=== PATIENT | female | born 1980 ===

== ENCOUNTER 2017-10-29 13:12 | Emergency (ER) | payer OTHER ==
--- NOTE | 2017-10-29 13:37 | C.PDOC ---
History Of Present Illness 37 year old female presents to the ED c/o 1 day history of itchy rash to the face upper arms and anterior chest. Patient state she has not been eating nothing new, not new detergents or lotions. Patient denies SOB, itchy throat, cough, facial swelling, recent travel. Chief Complaint (Nursing): Abnormal Skin Integrity History Per: Patient History/Exam Limitations: no limitations Onset/Duration Of Symptoms: Days (1) Current Symptoms Are (Timing): Still Present Location Of Injury: Right: Arm, Face, Left: Arm, Face, Anterior: Chest Quality Of Symptoms: Itching Recent travel outside of the [place]: No Additional History Per: Patient Past Medical History Reviewed: Historical Data, Nursing Documentation, Vital Signs Vital Signs: Last Vital Signs Temp 98.2 F 10/29/17 14:40 Pulse 75 10/29/17 14:40 Resp 18 10/29/17 14:40 BP 127/73 10/29/17 14:40 Pulse Ox 100 10/29/17 17:26 - Medical History PMH: No Chronic Diseases Surgical History: No Surg Hx Family History: States: Unknown Family Hx - Social History Hx Tobacco Use: No Hx Alcohol Use: No Hx Substance Use: No Review Of Systems Constitutional: Negative for: Fever, Chills Cardiovascular: Negative for: Chest Pain Respiratory: Negative for: Cough, Shortness of Breath Gastrointestinal: Negative for: Nausea, Vomiting Skin: Positive for: Rash Physical Exam - Physical Exam Appears: Non-toxic, No Acute Distress Skin: Warm, Dry, Rash (hives to face and anterior chest) Head: Atraumatic, Normacephalic Eye(s): bilateral: Normal Inspection Nose: No Discharge Oral Mucosa: Moist Tongue: No Swelling Lips: No Swelling Neck: Normal ROM, Supple Chest: Symmetrical Cardiovascular: Rhythm Regular, No Murmur Respiratory: Normal Breath Sounds, No Rales, No Rhonchi, No Wheezing, Other ( NARD) Extremity: Normal ROM, No Tenderness, No Swelling Neurological/Psych: Oriented x3, Normal Speech Gait: Steady ED Course And Treatment O2 Sat by Pulse Oximetry: 100 (ON RA) Pulse Ox Interpretation: Normal Progress Note: On re-evaluation patient feels better, stable to be d/c with PMD/ Clinic follow up. Medical Decision Making Medical Decision Making: Plan: * Benadryl 50 mg IM * Pepcid 40 mg PO * Prednisone 60 mg PO Disposition - Disposition Referrals: [facility] [Outside] Disposition: HOME/ ROUTINE Disposition Time: 14:36 Condition: IMPROVED Additional Instructions: Follow up in Clinic within 1-2 days. Return to ED if feel worse. 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 - Scribe Statement The provider has reviewed the documentation as recorded by the Scribe Yogesh Cosby All medical record entries made by the Scribe were at my direction and personally dictated by me. I have reviewed the chart and agree that the record accurately reflects my personal performance of the history, physical exam, medical decision making, and the department course for this patient. I have also personally directed, reviewed, and agree with the discharge instructions and disposition.
[2017-10-29] MEDS ORDERED: DiphenhydrAMINE 50 mg/ml Inj IM STA (13:42)
[2017-10-29 13:45] VITALS: O2SAT 100
[2017-10-29] MEDS ORDERED: DiphenhydrAMINE 50 mg/ml Inj ONE (13:58)
[2017-10-29 14:49] VITALS: BP 127/73; PULSE 75; RESP 18; TEMP 98.2
== END 2017-10-29 14:40 | disposition home or self-care (01) ==
LOC: C.ER 13:12
DX: L50.0 Allergic urticaria (principal)
CPT/HCPCS: 96372; 99284; J1200

== ENCOUNTER 2017-12-14 08:28 | Emergency (ER) | payer OTHER, SELFPAY ==
[2017-12-14 08:33] VITALS: TEMP 98.7; O2SAT 98
[2017-12-14] MEDS ORDERED: DiphenhydrAMINE 50 mg/ml Inj IVP STA (09:02)
[2017-12-14] MEDS ORDERED: Sodium Chloride 0.9% 1,000 ML IV STA (09:03)
--- NOTE | 2017-12-14 09:16 | C.PDOC ---
History Of Present Illness 37 y/o female with PMHx of allergies presents to ED for complaints of hives that began three days ago. Patient states she experienced similar symptoms 2 months ago but did not her PMD for the symptoms. Denies fever or any other physical complaints. Patient describes symptoms as itchy. Time Seen by Provider: 12/14/17 08:47 Chief Complaint (Nursing): Allergic Reaction History Per: Patient History/Exam Limitations: no limitations Onset/Duration Of Symptoms: Days (3) Current Symptoms Are (Timing): Still Present Possible Cause: Unknown Associated Symptoms: Skin Rash, Itching. denies: Swelling, Trouble Swallowing, Chest Pain Home/EMS Treatment: None Recent travel outside of the [place]: No Past Medical History Reviewed: Historical Data, Nursing Documentation, Vital Signs Vital Signs: Last Vital Signs Temp 98.7 F 12/14/17 08:31 Pulse 83 12/14/17 12:34 Resp 18 12/14/17 12:34 BP 118/79 12/14/17 12:34 Pulse Ox 98 12/14/17 12:34 - Medical History PMH: No Chronic Diseases Surgical History: No Surg Hx Family History: States: Unknown Family Hx - Social History Hx Tobacco Use: No Hx Alcohol Use: No Hx Substance Use: No - Immunization History Hx Tetanus Toxoid Vaccination: No Hx Influenza Vaccination: No Hx Pneumococcal Vaccination: No Review Of Systems Constitutional: Negative for: Fever, Chills ENT: Negative for: Mouth Swelling, Throat Swelling Cardiovascular: Negative for: Chest Pain Respiratory: Negative for: Shortness of Breath Gastrointestinal: Negative for: Nausea, Vomiting, Abdominal Pain, Diarrhea Skin: Positive for: Rash Neurological: Negative for: Weakness, Numbness Physical Exam - Physical Exam Appears: Non-toxic, No Acute Distress Skin: Warm, Dry, Rash (Diffuse, urticarial) Head: Atraumatic, Normacephalic Eye(s): bilateral: Normal Inspection Nose: Normal, No Discharge Oral Mucosa: Moist Tongue: Normal Appearing, No Swelling, No Erythema Lips: Normal Appearing, No Swelling, No Erythema Throat: Normal (r ), No Erythema, No Exudate, No Drooling, Other (patent airway , normal voice) Neck: Supple Chest: Symmetrical, No Tenderness Cardiovascular: Rhythm Regular, No Murmur Respiratory: Normal Breath Sounds, No Decreased Breath Sounds, No Rales, No Rhonchi, No Wheezing Gastrointestinal/Abdominal: Soft, No Tenderness Extremity: Normal ROM, No Deformity, No Swelling Extremity: Bilateral: Atraumatic, Normal Color And Temperature, Normal ROM Pulses: Left Radial: Normal, Right Radial: Normal Neurological/Psych: Oriented x3 (Awake and alert), Normal Speech (Speaking in full sentences ) Gait: Steady ED Course And Treatment O2 Sat by Pulse Oximetry: 98 (RA) Pulse Ox Interpretation: Normal Progress Note: Administered SOLU-Medrol, Pepcid, Benadryl, and IV fluids. Patient advised to go to PMD to advise for water pollution specialist. Medications and instructions for care has been provided and patient is in agreement. Patient advised to return if symptoms persist or acutely worsen. Disposition - Disposition Referrals: [facility] at [facility] [Outside] Disposition: HOME/ ROUTINE Disposition Time: 12:10 Condition: STABLE Additional Instructions: Follow up in Clinic within 1-2 days. Return to ED if feel worse. 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 - Scribe Statement The provider has reviewed the documentation as recorded by the Scribe Mayelin Waldrop All medical record entries made by the Scribe were at my direction and personally dictated by me. I have reviewed the chart and agree that the record accurately reflects my personal performance of the history, physical exam, medical decision making, and the department course for this patient. I have also personally directed, reviewed, and agree with the discharge instructions and disposition.
[2017-12-14] MEDS ORDERED: Sodium Chloride 0.9% 1,000 ML ONE (09:23)
[2017-12-14] MEDS ORDERED: DiphenhydrAMINE 50 mg/ml Inj ONE (09:23)
[2017-12-14 11:28] VITALS: RESP 18
[2017-12-14 12:35] VITALS: BP 118/79; PULSE 83
== END 2017-12-14 12:35 | disposition home or self-care (01) ==
LOC: C.ER 08:28
DX: L50.9 Urticaria, unspecified (principal)
CPT/HCPCS: 96361; 96374; 96375; 99284; J1200; J2930; J7030

== ENCOUNTER 2018-01-04 08:00 | Emergency (ER) | payer OTHER ==
[2018-01-04 08:19] VITALS: PULSE 75; TEMP 98.1; O2SAT 99
--- NOTE | 2018-01-04 08:50 | C.PDOC ---
History Of Present Illness 37 y/o female presents to the ER complaining of generalized rash which has been present for the past 1 week. Patient notes that she had similar episode x2 in the past two months. At the time, patient was prescribed Benadryl, prednisone and Pepcid without improvement. Pt was also evaluated by the clinic when this episode started, had labs drawn and she was prescribed unknown medications. She is scheduled to follow up in the medical clinic in 4 days. Denies having fever, difficulty breathing, difficulty swallowing, lip/ mouth/ throat swelling , joint pain, nausea, vomiting, CP, and abdominal pain. Time Seen by Provider: 01/04/18 08:26 Chief Complaint (Nursing): Abnormal Skin Integrity History Per: Shaker Screen Operator (KRYSTLE Nolasco) History/Exam Limitations: no limitations Onset/Duration Of Symptoms: Days Current Symptoms Are (Timing): Still Present Severity: Moderate Past Medical History Reviewed: Historical Data, Nursing Documentation, Vital Signs Vital Signs: Last Vital Signs Temp 98.1 F 01/04/18 08:16 Pulse 75 01/04/18 08:16 Resp 18 01/04/18 09:01 BP Pulse Ox 99 01/04/18 09:51 - Medical History PMH: No Chronic Diseases Surgical History: No Surg Hx Family History: States: No Known Family Hx - Social History Hx Tobacco Use: No Hx Alcohol Use: No Hx Substance Use: No - Immunization History Hx Tetanus Toxoid Vaccination: No Hx Influenza Vaccination: No Hx Pneumococcal Vaccination: No Review Of Systems Except As Marked, All Systems Reviewed And Found Negative. Constitutional: Negative for: Fever, Chills Cardiovascular: Negative for: Chest Pain Gastrointestinal: Negative for: Nausea, Vomiting, Abdominal Pain Skin: Positive for: Rash Physical Exam - Physical Exam Appears: Non-toxic, No Acute Distress Skin: Warm, Dry, Rash (erythematous maculopapular rash diffusely) Head: Atraumatic, Normacephalic Eye(s): bilateral: Normal Inspection, EOMI Nose: Normal Oral Mucosa: Moist Tongue: No Swelling Lips: No Swelling Throat: Normal, No Drooling Neck: Normal ROM, Supple Chest: Symmetrical Cardiovascular: Rhythm Regular Respiratory: Normal Breath Sounds, No Rales, No Rhonchi, No Wheezing Gastrointestinal/Abdominal: Normal Exam, Soft, No Tenderness, No Guarding, No Rebound Extremity: Normal ROM Neurological/Psych: Oriented x3, Normal Speech ED Course And Treatment O2 Sat by Pulse Oximetry: 99 (RA) Pulse Ox Interpretation: Normal Medical Decision Making Medical Decision Making: Labs from reviewed. There are elevated rheumatoid, IgM, and IgG levels. EZEQUIEL is negative. Pt has negative allergy profile. Pt does not have intraoral swelling and difficulty breathing. [place]a CTA. Pt has been discharged and instructed to continue taking Benadryl and follow up with aircraft layout worker and clinic as scheduled. Disposition - Disposition Referrals: [facility] at [facility] [Outside] Disposition: HOME/ ROUTINE Disposition Time: 08:49 Condition: STABLE Additional Instructions: Follow up with the clinic as scheduled. Return to ER if symptoms persist or worsen. 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 - Scribe Statement The provider has reviewed the documentation as recorded by the Lindsey Barker Provider Attestation All medical record entries made by the Lindsey were at my direction and personally dictated by me. I have reviewed the chart and agree that the record accurately reflects my personal performance of the history, physical exam, medical decision making, and the department course for this patient. I have also personally directed, reviewed, and agree with the discharge instructions and disposition.
[2018-01-04 09:02] VITALS: RESP 18
== END 2018-01-04 09:02 | disposition home or self-care (01) ==
LOC: C.ER 08:00
DX: R21 Rash and other nonspecific skin eruption (principal)

== ENCOUNTER 2018-07-31 17:40 | Emergency (ER) | payer OTHER ==
[2018-07-31 17:41] VITALS: BMI 31.0
[2018-07-31 18:00] VITALS: BP 102/66; PULSE 74; TEMP 98.4; O2SAT 98
--- NOTE | 2018-07-31 19:51 | C.PDOC ---
History Of Present Illness 38 year old female presents to the emergency department with complaints of a cold for the last week, as well as 3 days of headache,with no nausea, vomiting, fever, or chills. headache with a gradual onset. Patient states that she tried taking 1 Advil at a time with no relief. Patient denies neck stiffness. Time Seen by Provider: 07/31/18 18:27 Chief Complaint (Nursing): Headache History Per: Patient History/Exam Limitations: no limitations Onset/Duration Of Symptoms: Days (3), Gradual Past Medical History Reviewed: Historical Data, Nursing Documentation, Vital Signs Vital Signs: Last Vital Signs Temp 98.4 F 07/31/18 17:55 Pulse 74 07/31/18 17:55 Resp 16 07/31/18 17:55 BP 102/66 07/31/18 17:55 Pulse Ox 98 07/31/18 17:55 - Medical History PMH: No Chronic Diseases Surgical History: No Surg Hx Family History: States: No Known Family Hx - Social History Hx Tobacco Use: No Hx Alcohol Use: No Hx Substance Use: No - Immunization History Hx Tetanus Toxoid Vaccination: No Hx Influenza Vaccination: No Hx Pneumococcal Vaccination: No Review Of Systems Constitutional: Positive for: Fever, Chills Respiratory: Negative for: Cough Gastrointestinal: Positive for: Nausea, Vomiting. Negative for: Abdominal Pain, Diarrhea Neurological: Positive for: Headache Physical Exam - Physical Exam Appears: Non-toxic, No Acute Distress Skin: Normal Color, Warm, Dry Head: Atraumatic, Normacephalic Eye(s): bilateral: Normal Inspection, PERRL, EOMI Nose: Normal Oral Mucosa: Moist Throat: Normal, No Erythema, No Exudate Neck: Normal, Supple Chest: Symmetrical, No Tenderness Cardiovascular: Rhythm Regular, No Murmur Respiratory: Normal Breath Sounds, No Rales, No Rhonchi, No Wheezing Gastrointestinal/Abdominal: Soft, No Tenderness, No Guarding, No Rebound Extremity: Normal ROM Neurological/Psych: Oriented x3, Normal Speech, Normal Cognition, Normal Cranial Nerves ED Course And Treatment O2 Sat by Pulse Oximetry: 98 (RA) Pulse Ox Interpretation: Normal Medical Decision Making Medical Decision Making: Plan: pt with frontal headache, other flu like symptoms for almost a week; will not give tamiflu. Toradol 30mg PO POC Urine 2039 pt sleeping, easily aroused, and reports headache resolved after after toradol, appears well,. d/c home. Disposition Counseled Patient/Family Regarding: Diagnosis, Need For Followup - Disposition Referrals: [facility] at [facility] [Outside] Disposition: HOME/ ROUTINE Disposition Time: 20:49 Condition: IMPROVED Additional Instructions: Cate un seguimiento en la clnica mdica o con carlos mdico la prxima semana. [place] ibuprofeno 600 mg por va oral para el dolor si es necesario cada 6 horas. Regrese a la wilbert de emergencias para cualquier sntoma peor. Follow up in medical clinic or with your doctor next week. Take ibuprofen 600 mg by mouth for pain if needed every 6 hours. Return to ER for any worse symptoms. 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 - Scribe Statement The provider has reviewed the documentation as recorded by the Scribe (Manuel Dela Cruz) All medical record entries made by the Scribe were at my direction and personally dictated by me. I have reviewed the chart and agree that the record accurately reflects my personal performance of the history, physical exam, medical decision making, and the department course for this patient. I have also personally directed, reviewed, and agree with the discharge instructions and disposition.
[2018-07-31 20:59] VITALS: RESP 20
== END 2018-07-31 20:59 | disposition home or self-care (01) ==
LOC: C.ER 17:40
DX: R51 Headache (principal)
CPT/HCPCS: 81025; 96372; 99285; J1885